=== PATIENT | female | born 1955 | race Caucasian/White ===

== ENCOUNTER 2021-09-04 15:14 | Emergency (ER) | payer BC, MEDICARE, SELFPAY ==
[2021-09-04] VITALS (10 sets, daily range): BP systolic 113–130; BP diastolic 58–73; PULSE 62–85; RESP 16–18; TEMP 36.3; O2SAT 98–100; BMI 24.2
--- NOTE | 2021-09-04 | DI.RAD.S_ITS ---
PROCEDURE: XR CHEST 1V INDICATIONS: fall TECHNIQUE: One view of the chest was acquired. COMPARISON: None. FINDINGS: Surgical changes and devices: None. Lungs and pleura: Lungs are clear. No pleural effusions or pneumothorax. Mediastinum: Mediastinal contours appear normal. Heart size is normal. Bones and chest wall: No suspicious bony lesions. Overlying soft tissues appear unremarkable. IMPRESSION: No acute cardiopulmonary disease process. Dictated by: Sondra Cotto MD, PhD on 09/04/2021 at 16:05 Approved by: Sondra Cotto MD, PhD on 09/04/2021 at 16:05
--- NOTE | 2021-09-04 15:28 | DI.RAD.S_ITS ---
PROCEDURE: XR HUMERUS LT 2V INDICATIONS: Fall, deformity TECHNIQUE: 2 views of the humerus were acquired. COMPARISON: None. FINDINGS: Bones: Segmented, displaced fracture of the proximal left humerus diaphysis. Soft tissues: No suspicious soft tissue calcifications. IMPRESSION: Segmented, displaced left humerus fracture. Dictated by: Sondra Cotto MD, PhD on 09/04/2021 at 16:04 Approved by: Sondra Cotto MD, PhD on 09/04/2021 at 16:04
--- NOTE | 2021-09-04 15:40 | ED_ITS ---
HPI - Fall General Chief Complaint: Fall Stated Complaint: Poss L humeral fx Time Seen by Provider: 09/04/21 15:33 Source: patient Mode of arrival: EMS History of Present Illness HPI Narrative: Patient is a 66-year-old female who presents after mechanical fall. She was getting off the [place] going down the stairs when she fell hitting her head and landing on her left side. She denies any loss of consciousness. She has no neck pain. She has severe left humerus pain. No numbness or tingling in her left fingertips. She denies any nausea or vomiting. She denies any his medical history. She is not on any antiplatelet or anticoagulation medications. Related Data Previous Rx's Medication Instructions Recorded hydrocodone 5 mg-acetaminophen 325 1 tab PO Q6H PRN #20 tab 09/04/21 mg tablet hydrocodone 5 mg-acetaminophen 325 1 tab PO Q6H PRN #20 tab 09/04/21 mg tablet ondansetron 4 mg disintegrating 4 mg PO Q8H PRN #10 tab 09/04/21 tablet Allergies Allergy/AdvReac Type Severity Reaction Status Date / Time iodine Allergy Intermediate Hives Verified 09/04/21 15:22 Review of Systems Review of Systems Narrative: GENERAL: Denies chills, fatigue, malaise, fever, sweats, travel HEENT: Denies sinus pain, ear pain, sore throat, difficulty swallowing, neck pain RESPIRATORY: Denies dyspnea, cough, wheezing, hemoptysis, sputum. CARDIOVASCULAR: Denies chest pain, palpitations, orthopnea, edema GASTROINTESTINAL: Denies nausea, vomiting, abdominal pain, diarrhea, constipation, melena. : Denies dysuria, frequency, incontinence, hematuria, urinary retention, flank pain. MUSCULOSKELETAL: See HPI SKIN: No rash, no erythema, no pruritus NEUROLOGIC: Denies weakness, dizziness, headache, numbness, change in speech, confusion PSYCHIATRIC: No concerning psychosocial issues. 12 point review of systems is negative except for those stated above and HPI Patient History Social History Smoking Status: Never smoker Smoking Status: Never smoker Substance Use Type: does not use Exam Initial Vital Signs Initial Vital Signs: Vital Signs Temperature 97.3 F L 09/04/21 15:22 Pulse Rate 62 09/04/21 15:22 Respiratory Rate 18 09/04/21 15:22 Blood Pressure 125/63 09/04/21 15:22 Pulse Oximetry 100 09/04/21 15:22 GENERAL: Alert 66 year old female appears in pain HEENT: Head normocephalic,, EOMI, pupils reactive, face symmetric, moist mucous membranes, no hemotympanum, no septal hematoma NECK: In C-collar CARDIOVASCULAR: Regular rate and rhythm without murmurs, rubs or gallops. RESPIRATORY: Breath sounds equal bilaterally, no wheezes rales or rhonchi. No crepitations, no subcutaneous air, chest is nontender, no signs of trauma ABDOMEN: Soft, nontender. Normoactive bowel sounds all 4 quadrants. No guarding or rebound. BACK: Nontender vertebrae, no step-offs, no contusions PELVIS: stable. EXTREMITIES: Normal range of motion, no clubbing or edema. Right upper extremity: Within normal limits Left upper extremity: Swelling deformity distal radial pulse and sensation or deltoid intact distal radial pulse intact no numbness or tingling in any finger tip Right lower extremity: Within normal limits Left lower extremity:Within normal limits NEUROLOGICAL: Cranial nerves II through XII grossly intact. Normal gait and speech. SKIN: Left eye laceration she 2 cm in eye brow no other bruising Procedures Laceration Repair Laceration 1: Site: face (Eyebrow) Side (If applicable): right Size (cm): 2 Description: linear Depth: simple, single layer Local Anesthetic: lidocaine 1% Amount of anesthesia used (mL): 4 Pre-repair: wound explored and deep structures intact Skin layer closed with: nylon Skin layer suture size: 4-0 Number of sutures: 2 Technique: simple, interrupted Orthopedic Splinting/Casting Injury #1: Side: left Upper Extremity Injury Location: upper arm Upper Extremity Immobilizer: sling/shoulder immobilizer (humeral splint with sling) Course Orders Ordered: ED Orders 09/04/21 15:28 XR humerus LT 2V Stat 09/04/21 15:55 CT cervical spine wo con Stat CT head/brain wo con Stat Discontinued Medications Hydromorphone HCl (Hydromorphone 1 Mg Inj) 1 mg IV NOW ONE Stop: 09/04/21 15:56 Last Admin: 09/04/21 16:18 Dose: 1 mg Documented by: YENIFER Hydromorphone HCl (Hydromorphone 1 Mg Inj) 1 mg IV NOW ONE Stop: 09/04/21 17:32 Last Admin: 09/04/21 17:48 Dose: 1 mg Documented by: YENIFER Lidocaine HCl (Lidocaine 1% (Pf)) 4 ml SUBCUT NOW ONE Stop: 09/04/21 17:32 Last Admin: 09/04/21 17:48 Dose: 4 ml Documented by: RSHARRIS Ondansetron HCl (Ondansetron 4 Mg/2 Ml Inj) 4 mg IV NOW ONE Stop: 09/04/21 19:01 Last Admin: 09/04/21 19:08 Dose: 4 mg Documented by: YENIFER Vital Signs Vital signs: Vital Signs - 8 hr 09/04/21 15:22 09/04/21 15:28 09/04/21 15:30 Temperature 97.3 F L Pulse Rate 62 71 69 Respiratory Rate 18 Blood Pressure 125/63 Pulse Oximetry 100 99 100 09/04/21 16:00 09/04/21 16:38 09/04/21 17:00 Temperature Pulse Rate 66 77 70 Respiratory Rate Blood Pressure 119/73 113/62 Pulse Oximetry 100 99 98 09/04/21 17:30 09/04/21 17:54 09/04/21 18:00 Temperature Pulse Rate 73 80 72 Respiratory Rate 16 Blood Pressure 120/62 122/58 L Pulse Oximetry 100 100 99 09/04/21 19:37 Temperature Pulse Rate 85 Respiratory Rate 18 Blood Pressure 130/70 Pulse Oximetry 99 MDM - Fall Imaging Data CT scan - head: Radiologist's Impression: Signed Patient: Zach Daly MR#: [id number] : 1955 Acct:[id number] Age/Sex: 66 / F Date of Service: 09/04/21 Loc: ED Accession Number: [id number] ?? Procedure: CT head/brain wo con Ordering Provider: Ruth Pitt D.O. PROCEDURE:? CT HEAD/BRAIN WO CON ? INDICATIONS:? fall ? TECHNIQUE:? Noncontrast 4.5 mm thick angled axial sections acquired from the foramen magnum to the vertex, with coronal and sagittal reformats.? For radiation dose reduction, the following was used:? automated exposure control, adjustment of mA and/or kV according to patient size.? ? COMPARISON:? None. ? FINDINGS:? Image quality:? Excellent.? ? CSF spaces:? Basal cisterns are patent.? No extra-axial fluid collections.? Ventricles are normal in size and shape.? ? Brain:? No midline shift.? No intracranial masses or hemorrhage.? Smallwood-white ma tter interface is normal.? ? Skull and face:? Calvarium and visualized facial bones are intact, without suspicious lesions.? ? Sinuses:? Visualized sinuses and mastoids are clear.? ? IMPRESSION:? No evidence acute intracranial process. ? ? Dictated by: Irineo Hines M.D. on 09/04/2021 at 16:47 ? ? CT - cervical spine: Radiologist's Impression: [address] [address] [address] Scan Report Signed Patient: Zach Daly MR#: [id number] : 1955 Acct:[id number] Age/Sex: 66 / F Date of Service: 09/04/21 Loc: ED Accession Number: [id number] ?? Procedure: CT cervical spine wo con Ordering Provider: Rtuh Pitt D.O. PROCEDURE:? CT CERVICAL SPINE WO CON ? INDICATIONS:? fall ? TECHNIQUE:? Noncontrast 3 mm thick sections acquired from the skull base to the T4 level.? Sagittal and coronal reformats were then constructed.? For radiation dose reduction, the following was used:? automated exposure control, adjustment of mA and/or kV according to patient size.? ? COMPARISON:? None. ? FINDINGS:? Image quality:? Excellent.? ? Bones:? No fractures or dislocations.? Visualized superior ribs are intact.? Cervical spondylitic change.? Severe canal stenosis at C6-C7 secondary to a combination of short pedicles and a moderately large calcified left paracentral disc protrusion.? Multilevel facet arthropathy. ? Soft tissues:? Prevertebral soft tissues are normal in thickness.? No paravertebral hematomas.? No apical pneumothoraces.? ? ? IMPRESSION:? ? 1. No evidence acute fracture or dislocation. ? 2. Cervical spondylitic change. ? 3. Severe canal stenosis at C6-C7 secondary to short pedicles and a moderately large calcified left paracentral disc protrusion.? Dictated by: Irineo Hines M.D. on 09/04/2021 at 16:48 ? ? Chest x-ray: Radiologist's Impression: PROCEDURE:? XR CHEST 1V ? INDICATIONS:? fall ? TECHNIQUE:? One view of the chest was acquired.? ? COMPARISON:? None. ? FINDINGS:? ? Surgical changes and devices:? None.? ? Lungs and pleura:? Lungs are clear.? No pleural effusions or pneumothorax.? ? Mediastinum:? Mediastinal contours appear normal.? Heart size is normal.? ? Bones and chest wall:? No suspicious bony lesions.? Overlying soft tissues appear unremarkable.? ? IMPRESSION:? No acute cardiopulmonary disease process. ? ? Dictated by: Sondra Cotto MD, PhD on 09/04/2021 at 16:05 ? ? Approved by: Sondra Cotto MD, PhD on 09/04/2021 at 16:05 ? Extremity x-ray #1: Radiologist's Impression: XRay Report Signed Patient: Zach Daly MR#: [id number] : 1955 Acct:[id number] Age/Sex: 66 / F Date of Service: 09/04/21 Loc: ED Accession Number: [id number] ?? Procedure: XR humerus LT 2V Ordering Provider: Ruth Pitt D.O. PROCEDURE:? XR HUMERUS LT 2V ? INDICATIONS:? Fall, deformity ? TECHNIQUE:? 2 views of the humerus were acquired.? ? COMPARISON:? None. ? FINDINGS:? ? Bones:? Segmented, displaced fracture of the proximal left humerus diaphysis. ? Soft tissues:? No suspicious soft tissue calcifications.? ? IMPRESSION:? Segmented, displaced left humerus fracture. ? ? Dictated by: Sondra Cotto MD, PhD on 09/04/2021 at 16:04 ? ? Approved by: Sondra Cotto MD, PhD on 09/04/2021 at 16:04 ? [facility] Narrative Medical decision making narrative: The patient had a mechanical fall down the stairs. She is found to have a humeral fracture. [address] [facility] [facility] has been updated patient's symptoms she has reviewed x-ray herself. She request humeral splint and sling at this time does not think patient will need surgery. Patient lives out of [place] in [place] [facility]. I have discussed with her the importance of following up with Orthopedics as soon as possible. Her pain is controlled with Dilaudid at this time. She is also right hand dominant. Discharge Plan Departure Patient Disposition: Home Clinical Impression: Humeral fracture Qualifiers: Encounter type: initial encounter Humerus Location: shaft Fracture type: closed Fracture morphology: segmental Fracture alignment: displaced Laterality: left Qualified Code(s): S42.362A - Displaced segmental fracture of shaft of humerus, left arm, initial encounter for closed fracture Eyebrow laceration Qualifiers: Encounter type: initial encounter Laterality: left Qualified Code(s): S01.112A - Laceration without foreign body of left eyelid and periocular area, initial encounter Instructions: Humeral Shaft Fracture Activity Restrictions/Additional Instructions: *You have been diagnosed with left humeral shaft fracture and left eyebrow laceration *What to do: Keep splint on at all times. Shower and bathe with it. I would put clothing on over it Have sutures removed in about 5-7 days with her primary care provider walk-in clinic. May apply antibiotic ointment to it. Keep clean and dry with soap and water. *Continue to take medications as directed Avalon 1 tablet every 4-6 hours if needed for pain *Follow up with your primary care provider in 2-3 days or call [phone] -please call your primary care provider to get referral to Orthopedic surgery for as soon as possible. *Return to ER if you should have increasing pain numbness tingling redness drainage or any new, worsening or concerning symptoms CONTROLLED SUBSTANCE DISCHARGE (Narcotoic/benzodiazepine/Flexeril/Phenergan) 1. You have been prescribed narcotic medications, it does have acetaminophen/Tylenol/paracetamol in it, DO NOT TAKE MORE THAN 4,00mg in 24 hours of Tylenol. TRAMADOL DOES NOT CONTAIN TYLENOL 2. Please understand that we cannot provide further refills of narcotics, benzodiazepines or controlled substances through the ED and her pain management will need to be through your provider. 3. While on these medications you cannot drive or operate heavy machinery. 4. You cannot sign legal documents or perform any duties such as this. 5. As long as you're taking opiate pain medications he should also be taking a stool softener such as Colace, Dulcolax, MiraLAX or prune juice, to help avoid constipation. Prescriptions: New hydrocodone-acetaminophen 5-325 mg tablet 1 tab PO Q6H PRN (Reason: pain) Qty: 20 0RF hydrocodone-acetaminophen 5-325 mg tablet 1 tab PO Q6H PRN (Reason: pain) Qty: 20 0RF ondansetron 4 mg tablet,disintegrating 4 mg PO Q8H PRN (Reason: nausea and vomiting) Qty: 10 0RF
--- NOTE | 2021-09-04 15:49 | PC.NURSE ---
pt's glasses cut her above left eye. dried blood.
--- NOTE | 2021-09-04 15:55 | DI.CT.S_ITS ---
PROCEDURE: CT HEAD/BRAIN WO CON INDICATIONS: fall TECHNIQUE: Noncontrast 4.5 mm thick angled axial sections acquired from the foramen magnum to the vertex, with coronal and sagittal reformats. For radiation dose reduction, the following was used: automated exposure control, adjustment of mA and/or kV according to patient size. COMPARISON: None. FINDINGS: Image quality: Excellent. CSF spaces: Basal cisterns are patent. No extra-axial fluid collections. Ventricles are normal in size and shape. Brain: No midline shift. No intracranial masses or hemorrhage. Smallwood-white matter interface is normal. Skull and face: Calvarium and visualized facial bones are intact, without suspicious lesions. Sinuses: Visualized sinuses and mastoids are clear. IMPRESSION: No evidence acute intracranial process. Dictated by: Irineo Hines M.D. on 09/04/2021 at 16:47 Approved by: Irineo Hines M.D. on 09/04/2021 at 16:47
--- NOTE | 2021-09-04 15:55 | DI.CT.S_ITS ---
PROCEDURE: CT CERVICAL SPINE WO CON INDICATIONS: fall TECHNIQUE: Noncontrast 3 mm thick sections acquired from the skull base to the T4 level. Sagittal and coronal reformats were then constructed. For radiation dose reduction, the following was used: automated exposure control, adjustment of mA and/or kV according to patient size. COMPARISON: None. FINDINGS: Image quality: Excellent. Bones: No fractures or dislocations. Visualized superior ribs are intact. Cervical spondylitic change. Severe canal stenosis at C6-C7 secondary to a combination of short pedicles and a moderately large calcified left paracentral disc protrusion. Multilevel facet arthropathy. Soft tissues: Prevertebral soft tissues are normal in thickness. No paravertebral hematomas. No apical pneumothoraces. IMPRESSION: 1. No evidence acute fracture or dislocation. 2. Cervical spondylitic change. 3. Severe canal stenosis at C6-C7 secondary to short pedicles and a moderately large calcified left paracentral disc protrusion. Dictated by: Irineo Hines M.D. on 09/04/2021 at 16:48 Approved by: Irineo Hines M.D. on 09/04/2021 at 16:50
[2021-09-04] MEDS: HYDROMORPHONE 1 MG INJ IV ×2 (16:18→17:48)
[2021-09-04] MEDS: LIDOCAINE 1% (PF) 4 ML SUBCUT (17:48)
--- NOTE | 2021-09-04 18:26 | PC.NURSE ---
humeral cuff applied by Karlene Ocasio left arm. left arm is quite swollen and bruised. left arm sling applied.
--- NOTE | 2021-09-04 19:06 | PC.NURSE ---
pt sat up and vomitted. zofran given iv. crackers given for her ride home
[2021-09-04] MEDS: ONDANSETRON 4 MG/2 ML INJ IV (19:08)
== END 2021-09-04 19:40 | disposition home or self-care (01) ==
PROVIDERS: Emergency Provider Emergency Medicine
DX: S42.362A Displaced segmental fracture of shaft of humerus, left arm, initial encounter for closed fracture (principal); S01.112A Laceration without foreign body of left eyelid and periocular area, initial encounter; W10.9XXA Fall (on) (from) unspecified stairs and steps, initial encounter; Y93.89 Activity, other specified; Y92.814 Boat as the place of occurrence of the external cause
CPT/HCPCS: 12011; 70450; 71045; 72125; 73060; 96374; 96375; 96376; 99284; J1170; J2405